=== PATIENT | male | born 1960 | race Caucasian/White ===

== ENCOUNTER 2018-01-07 17:44 | Inpatient (IN) | payer BC ==
[~2018-01-07] VITALS: Ht 177.8 cm; Wt 104.0 kg
[2018-01-07 18:57] LABS: CHLORIDE 105 mEq/L (99-109); POTASSIUM 3.8 mEq/L (3.7-5.4); SODIUM 142 mEq/L (136-147)
[2018-01-07 18:58] LABS: HEMATOCRIT 45.9 % (38.0-50.0); HEMOGLOBIN 16.6 G/DL (12.5-16.6); MCH 33.5 PG (29.0-34.0); MCHC 36.2 G/DL (30.0-36.0); MCV 92.7 FL (86-99); PLATELET COUNT 199 K/uL (156-360); RBC DIS.WIDTH-CV 12.5 % (11.8-14.6); RBC DIS.WIDTH-SD 42.6 % (39-53); RED BLOOD COUNT 4.95 M/uL (4.00-5.50); WHITE BLOOD COUNT 10.1 K/uL (4.1-10.2)
[2018-01-07 18:59] LABS: GLUCOSE 105 mg/dL (70-99)
[2018-01-07 19:03] LABS: CREATININE 0.9 mg/dL (0.6-1.3); GFR ESTIMATE (CALCULATED) > 59 mL/min/ (58.99-99999); UREA NITROGEN (BUN) 11 mg/dL (9-23)
[2018-01-07 19:09] LABS: TROP-I INTERPRETATION NEGATIVE; TROPONIN-I 0.25 ng/mL (0.0-0.30)
[2018-01-07] MEDS ORDERED: VENTOLIN HFA18 GM IH (19:48)
[2018-01-07] MEDS ORDERED: CENTRUM SILVER1 EAC3 PO (19:48)
[2018-01-07] MEDS ORDERED: CIALIS5 MG PO (19:48)
[2018-01-07] MEDS ORDERED: DULERA 200 MCG/13 GM IH (19:48)
[2018-01-07] MEDS ORDERED: ADULT ASPIRIN R81 MG PO (19:49)
[2018-01-07] MEDS ORDERED: ALLEGRA ALLERG180 MG PO (19:49)
[2018-01-07] MEDS ORDERED: TURMERIC500 M2 PO (19:49)
[2018-01-07] MEDS ORDERED: OMEPRAZOLE20 MG PO (19:49)
[2018-01-07] MEDS ORDERED: IBUPROFEN600 MG PO (19:49)
[2018-01-07 20:45] LABS: INTER. NORMALIZED RATIO 0.9
[2018-01-07 20:47] LABS: PTT 31.2 SEC (25-37)
[2018-01-07 21:49] LABS: MAGNESIUM 1.9 mg/dL (1.3-2.7)
[2018-01-07 22:00] VITALS: BP 158/75
[2018-01-07 23:26] LABS: TROP-I INTERPRETATION POSITIVE
[2018-01-07 23:27] LABS: TROPONIN-I 2.93 ng/mL (0.0-0.30)
[2018-01-08] VITALS (14 sets, daily range): BP systolic 80–144; BP diastolic 44–82
[2018-01-08 03:10] LABS: INTER. NORMALIZED RATIO 1.1
[2018-01-08 03:13] LABS: PTT 68.8 SEC (25-37)
[2018-01-08 06:52] LABS: TROP-I INTERPRETATION POSITIVE; TROPONIN-I 7.17 ng/mL (0.0-0.30)
[2018-01-09] VITALS (21 sets, daily range): BP systolic 78–127; BP diastolic 41–83
[2018-01-09 05:21] LABS: BASOPHIL (%) 0.2 % (0-1); EOSINOPHIL (%) 2.1 % (0-5); EOSINOPHIL COUNT 0.2 K/uL (0-0.3); IMMATURE GRANULOCYTE (%) 0.2 % (0.0-0.7); LYMPHOCYTE (%) 33.2 % (15-42); LYMPHOCYTE COUNT 3.1 K/uL (1.0-2.8); MCH 31.8 PG (29.0-34.0); MCHC 33.8 G/DL (30.0-36.0); MCV 94.3 FL (86-99); MONOCYTE (%) 12.6 % (3-12); MONOCYTE COUNT 1.2 K/uL (0-0.8); NEUTROPHIL (%) 51.7 % (45-76); NEUTROPHIL COUNT 4.7 K/uL (1.8-6.4); PLATELET COUNT 144 K/uL (156-360); RBC DIS.WIDTH-CV 13.1 % (11.8-14.6); RBC DIS.WIDTH-SD 45.1 % (39-53); RED BLOOD COUNT 4.24 M/uL (4.00-5.50); WHITE BLOOD COUNT 9.2 K/uL (4.1-10.2)
[2018-01-09 05:24] LABS: HEMOGLOBIN 13.5 G/DL (12.5-16.6)
[2018-01-09 05:49] LABS: TROP-I INTERPRETATION POSITIVE; TROPONIN-I 12.46 ng/mL (0.0-0.30)
[2018-01-09 05:51] LABS: CHLORIDE 106 MEQ/L (99-109); CREATININE 1.1 MG/DL (0.6-1.3); GFR ESTIMATE (CALCULATED) > 59 mL/min/ (58.99-99999); GLUCOSE 95 mg/dL (70-99); HDL CHOLESTEROL 37 MG/DL (Desirable>=40); LDL CHOLESTEROL 133 mg/dL (Desirable<100); NON-HDL CHOLESTEROL 157 mg/dL (Desirable<160); POTASSIUM 3.9 MEQ/L (3.7-5.4); SODIUM 141 MEQ/L (136-147); TOTAL CHOLESTEROL 194 mg/dL (Desirable<200); TRIGLYCERIDES 119 MG/DL (Normal: <150); UREA NITROGEN (BUN) 12 mg/dL (9-23)
[2018-01-09 07:27] LABS: CK-MB 31.8 ng/mL (0.0-4.9)
[2018-01-09 07:41] LABS: CKMB RELATIVE INDEX 4.6 (0.0-3.9); CREATINE KINASE 688 IU/L (1-294); TOTAL CK 688 IU/L (1-294)
[2018-01-09 10:06] LABS: MAGNESIUM 1.8 mg/dl (1.3-2.7)
[2018-01-10 06:00] VITALS: BP 127/79
[2018-01-10 08:00] VITALS: BP 149/89
[2018-01-10 08:32] VITALS: BP 149/86
[2018-01-10 10:20] LABS: HEMOGLOBIN A1c (GLYCOHEMOGLOB) 5.7 % (Below 5.7)
[2018-01-10 12:42] VITALS: BP 110/65
[2018-01-10] MEDS ORDERED: EFFIENT10 MG PO (13:17)
[2018-01-10] MEDS ORDERED: VITAMIN B-1100 MG PO (13:17)
[2018-01-10] MEDS ORDERED: FOLIC ACID1 MG PO (13:17)
[2018-01-10] MEDS ORDERED: ATORVASTATIN CA40 MG PO (13:17)
[2018-01-10] MEDS ORDERED: LOPRESSOR25 MG PO (13:17)
[2018-01-10] MEDS ORDERED: LISINOPRIL2.5 MG PO (13:20)
== END 2018-01-10 14:05 | disposition home or self-care (01) | DRG 247 ==
LOC: EME 17:44 → EDOF 20:52 → 4WEST 20:52 → ENRESERV 20:53 → 4EAST 22:20 → ENRESERV 01-08 17:24 → 4WEST 01-08 17:41 → CANRESERV 01-09 14:42 → ENRESERV 01-09 14:42 → 4WEST 01-10 14:05
PROVIDERS: Internal Medicine; Internal Medicine Interventional Cardiology
DX: I21.4 Non-ST elevation (NSTEMI) myocardial infarction (principal); I25.110 Atherosclerotic heart disease of native coronary artery with unstable angina pectoris; I11.9 Hypertensive heart disease without heart failure; I16.1 Hypertensive emergency; I49.3 Ventricular premature depolarization; I95.9 Hypotension, unspecified; T40.4X5A Adverse effect of other synthetic narcotics, initial encounter; I47.2 Ventricular tachycardia; J98.01 Acute bronchospasm; T46.2X5A Adverse effect of other antidysrhythmic drugs, initial encounter; E78.5 Hyperlipidemia, unspecified; J44.9 Chronic obstructive pulmonary disease, unspecified; G35 Multiple sclerosis; K21.9 Gastro-esophageal reflux disease without esophagitis; F10.10 Alcohol abuse, uncomplicated; E66.9 Obesity, unspecified; F17.200 Nicotine dependence, unspecified, uncomplicated; Z68.35 Body mass index [BMI] 35.0-35.9, adult; Z79.82 Long term (current) use of aspirin
CPT/HCPCS: 71046; 80048; 80061; 82550; 82553; 83036; 83735; 84484; 85025; 85027; 85347; 85610; 85730; 87641; 93005; 93306; 94640 76; 94799; 99202; 99281; 99285; C1725; C1769; C1874; C1887; J0153; J0280; J1200; J1644; J2250; J3010; J7030